=== PATIENT | male | born 1940 | race Caucasian/White ===

== ENCOUNTER → 2017-09-09 | Outpatient (CLI) | payer MEDICARE, OTHER ==
[~2017-09-09] MED LIST: ATOR10TA24 PO; METF-1 PO; METO25TA91 PO; RAMI10CA72 PO; ZIA10 PO
--- NOTE | 2017-09-09 13:46 | RADIOLOGY IMAGING REPORT ---
[place] [facility] [place] NAME: Fadi Newton : 1940 MR: [id number] V: [id number] EXAM DATE: ORDERING PHYSICIAN: WHITNEY JONAS TECHNOLOGIST: [place] [facility] [place] Fadi Newton : 1940 Visit/Account:[id number] Date of Sevice: 09/09/2017 Exam type: LUMBAR SPINE 2 OR 3 VIEW History: Spinal stenosis with neurogenic claudication pain x3 years Comparison: None. Findings: There are five nonrib-bearing lumbar-type vertebral bodies present. There appears to be mild loss of height of the T11 vertebral body of indeterminate age. There is moderate disc space narrowing at T1 0-11, T11-12 T12-L1, L1-L2, L2-L3. This mild disc space narrowing L3-4 and L4-5 and moderate to rachel re disc space narrowing L5-S1. There is a 5 mm anterior listhesis of L4 with respect L5. There is a 4 mm retrolisthesis of L2 with respect L3 and a 3 mm retrolisthesis of L1 with respect L2. Extensiv e facet joint degenerative changes are seen at L4-5 and L5-S1 to slightly lesser extent at L3-4. IMPRESSION: 1. 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 MR may be helpful for further characterization Report Dictated By: Alyssa Oseguera MD at 09/09/2017 1:38 PM Report E-Signed By: Alyssa Oseguera MD at 09/09/2017 1:41 PM WSN:[email or web address]
== END ==
LOC: RAD 11:26
PROVIDERS: ATTEND Family Medicine
DX: M47.894 Other spondylosis, thoracic region (principal); M47.896 Other spondylosis, lumbar region
CPT/HCPCS: 72100

== ENCOUNTER → 2017-09-15 | Outpatient (CLI) | payer MEDICARE, OTHER ==
--- NOTE | 2017-09-15 15:05 | RADIOLOGY IMAGING REPORT ---
FACILITY: [facility] [place] PATIENT NAME: Fadi Newton : 1940 MR: [id number] V: [id number] EXAM DATE: [id number] ORDERING PHYSICIAN: WHITNEY JONAS TECHNOLOGIST: Location: [facility] Patient: Fadi Newton : 1940 Visit/Account:[id number] Date of Sevice: 09/15/2017 EXAMINATION: L SPINE W/O CONTRAST INDICATION: Pain radiating down left leg COMPARISON: Radiographs September 09, 2017 TECHNIQUE: Multiplane MR imaging was performed through the lumbar spine without contrast. FINDINGS: Vertebral bodies: Normal lumbar vertebral body heights. Mild chronic T11 wedge compression deformity. Conus position/signal: Normal Marrow signal: Degenerative edema surrounds the L2-3, L4-5 and L5-S1 disc spaces. Upper endplate Schm orl's node at T11 is partially imaged. Extraspinal structures including psoas muscles/paraspinal soft tissues: Normal L1-2: 3 mm retrolisthesis of L1 on L2, small disc protrusion, slight right lateral recess narrowing, moderate degenerative disc disease, no foraminal narrowing. L2-3: Slight retrolisthesis of L2 on L3, moderate right-sided degenerative disc disease. Small senior java architect ior disc protrusion, slight right lateral recess narrowing, mild right foraminal narrowing, mild to m oderate left foraminal narrowing. L3-4: Slight retrolisthesis of L3 on L4, small posterior disc protrusion, ligamentum flavum thickenin g, prominence of posterior epidural space fat, tiny synovial cyst within the right ligamentum flavum, bilateral lateral recess narrowing and moderate thecal sac narrowing. Mild right foraminal narrowing , moderate left foraminal narrowing. L4-5: Severe facet arthropathy, ligamentum flavum thickening, 4 mm anterolisthesis of L4 on L5. Sever e thecal sac narrowing. Moderate right foraminal narrowing, severe left foraminal narrowing. L5-S1: Severe degenerative disc disease, 2 mm retrolisthesis of L5 on S1, posterior endplate spurring and minimal disc protrusion, moderate facet arthropathy, ligamentum flavum thickening, mild thecal s ac and bilateral lateral recess narrowing, severe right foraminal narrowing, severe left foraminal na rrowing. IMPRESSION: 1. Severe L4-5 thecal sac narrowing secondary to the constellation of findings described above. 2. Moderate L3-4 and mild L5-S1 thecal sac narrowing secondary to the constellation of findings descr ibed above. 3. Multilevel severe foraminal narrowing see level by level comments above. Report Dictated By: Danny Cowan MD at 09/15/2017 2:53 PM Report E-Signed By: Danny Cowan MD at 09/15/2017 3:00 PM WSN:[email or web address]
== END ==
LOC: MRI 01:30
PROVIDERS: ATTEND Family Medicine
DX: M51.26 Other intervertebral disc displacement, lumbar region (principal); M51.36 Other intervertebral disc degeneration, lumbar region; M71.38 Other bursal cyst, other site
CPT/HCPCS: 72148

== ENCOUNTER → 2019-03-24 | Outpatient (CLI) | payer MEDICARE, OTHER | LOC: US 01:22 | PROVIDERS: ATTEND Family Medicine | DX: I48.1 Persistent atrial fibrillation (principal) | CPT/HCPCS: 93306 ==